=== PATIENT | male | born 1945 | race Caucasian/White ===

== ENCOUNTER 2017-01-04 12:58 | Inpatient (IN) ==
[2017-01-04 14:19] LABS: MANUAL DIFF NEEDED? NO
[2017-01-04 14:28] LABS: BASO% 0.4 % (0.0-0.8); EOS# 0.13 X1000 (0.0-0.7); EOS% 1.9 % (0.0-10.0); HEMATOCRIT 38.1 % (42.0-52.0); HEMOGLOBIN 12.6 g/dL (14.0-18.0); LYMPH# 1.17 X1000 (1.2-3.4); LYMPH% 17.3 % (20.5-51.1); MCH 29.6 PG (27-31); MCHC 33.1 g/dL (33-37); MCV 89.6 FL (81-99); MONO# 0.43 X1000 (0.11-0.59); MONO% 6.4 % (1.7-9.3); MPV 11.4 FL (7.4-10.4); PLT 202 X1000 (130-400); RBC 4.25 XMIL (4.7-6.1)
[2017-01-04 14:31] LABS: INR 1.02; PROTIME 10.7 Seconds (9.2-11.7); PTT 24.7 Seconds (22.0-36.0)
--- NOTE | 2017-01-04 14:32 | EKG Report ---
Test Performed on : 01/04/2017 2:16:08 PM Test Reason : AMS Blood Pressure : / mmHG Vent. Rate : 055 BPM Atrial Rate : 055 BPM P-R Int : 156 ms QRS Dur : 164 ms QT Int : 530 ms P-R-T Axes : 052 -28 012 degrees QTc Int : 507 ms Sinus bradycardia. with premature supraventricular complexes. Possible Left atrial enlargement Right bundle branch block Left ventricular hypertrophy Abnormal ECG No previous ECGs available Unconfirmed Result
[2017-01-04 14:38] LABS: ALBUMIN 4.1 g/dL (3.5-5.0); CALCIUM 9.4 mg/dL (8.8-10.2); POTASSIUM 3.7 mmol/L (3.5-5.1); TOTAL BILIRUBIN 0.34 mg/dL (0.20-1.00); TOTAL PROTEIN 6.4 g/dL (6.3-8.3)
--- NOTE | 2017-01-04 14:45 | Diag Imaging Result Doc PS360 ---
CHEST-PORTABLE - 01/04/2017 INDICATION: AMS TECHNIQUE: COMPARISON: None FINDINGS: There are several left-sided rib deformities compatible with old healed fractures. There is age-indeterminate separation of the right acromioclavicular joint. The lungs are clear of infiltrate. Heart size and pulmonary vascularity is normal. IMPRESSION: No acute disease. Electronically signed by Juan Manuel Ibanez 01/04/2017 2:43 PM
--- NOTE | 2017-01-04 14:47 | PROVIDER DOCUMENTATION ---
HPI-Syncope/Dizziness - General Chief Complaint: Altered Mental Status Stated Complaint: ams Time Seen by Provider: 01/04/17 14:23 Allergies/Adverse Reactions: Patient Allergies Allergy/AdvReac Type Severity Reaction Status Date / Time Penicillins Allergy Unknown Verified 12/31/15 16:43 Home Medications: Home Medication List Medication Instructions Recorded Confirmed Last Taken Type Aspirin 325 mg PO DAILY 12/31/15 12/31/15 12/31/15 History Atenolol 50 mg PO 12/31/15 12/31/15 History ENALApril [Vasotec] 10 mg PO DAILY 12/31/15 12/31/15 12/31/15 History Fenofibrate 160 mg PO 12/31/15 12/31/15 History Glipizide [Glipizide ER] 10 mg PO 12/31/15 Unknown History [place] Carbonate 450 mg PO 12/31/15 Unknown History Metformin [Glucophage] 500 mg PO BID 12/31/15 12/31/15 Unknown History Perphenazine 2 mg PO 12/31/15 12/31/15 History - History of Present Illness-Syncope/Dizzy Nature of Presenting Problem: Pt comes to he ED via EMS, pt was found unresponsive. Pt states that he does not remember anything that happened in the last week. Pt states that sometimes he accidentally doubles up in his BP meds accidentally, but is unsure if this happened today. The pt's sister got to the ED around 17:00 and explained that pt was found in his apartment complex lobby confused, pt asked to use to bathroom but walked out of it with his pants pulled down, the staff sent him to his room and they called the pt's sister who called EMS Prior Episodes: reports: other (unsure) Onset/Duration: reports: unsure Timing: reports: gone now Symptoms prior to episode: reports: other (unknown) Context: reports: lost consciousness, became unresponsive, collapsed Loss of Consciousness: unsure Location of injury. (If syncope resulted in an injury.): reports: none Current Symptoms: reports: none/feels normal - Dizziness Any recent trauma/injury?: reports: other (unsure) Modifying Factors: improves with: nothing Review of Systems - Adult - REVIEW OF SYSTEMS - ADULT ROS:: ROS per family (per sister, pt is very weak, confused) Constitutional: reports: no symptoms reported Eyes: reports: no symptoms reported Ears, Nose, Mouth & Throat: reports: no symptoms reported Cardiovascular: reports: no symptoms reported Respiratory: reports: no symptoms reported Gastrointestinal: reports: no symptoms reported Genitourinary: reports: no symptoms reported Musculoskeletal: reports: no symptoms reported Integumentary: reports: no symptoms reported Neurological: reports: no symptoms reported Psychiatric: reports: no symptoms reported Endocrine: reports: no symptoms reported Past History - Adult - PAST MEDICAL HISTORY-ADULT Review of Records: reports: Old Records Reviewed (HNT, DM2 non insulin dependent , bipolar), Nursing Assessment Review, Medications Reviewed Major Childhood Illnesses: reports: denies history Cardiovascular: reports: denies history Respiratory: reports: denies history Gastrointestinal: reports: denies history Obstetrical/Gynecological: reports: denies history Genitourinary: reports: denies history Musculoskeletal: reports: denies history Neurological: reports: denies history Endocrine/Immune: reports: denies history Other Conditions: reports: denies history Physical Exam-General - PHYSICAL EXAM-ADULT Initial Vital Signs Reviewed: Yes (bradycardic 50-56) - CONSTITUTIONAL General Appearance: appears well, alert, other (confused) - EYES Eyes: PERRL/EOMI, pink conjunctivae - HEAD, EARS, NOSE, MOUTH & THROAT HENMT: normocephalic/atraumatic, moist mucous membranes, normal ENT inspection - NECK Neck: non-tender, full range of motion - RESPIRATORY Respiratory: chest non-tender, no respiratory distress (babasilar crackels) - CARDIOVASCULAR Cardiovascular: normal peripheral pulses, no JVD, bradycardia. negative: no edema (bilateral LE edema +1) - GASTROINTESTINAL (ABDOMEN) Abdominal Exam: normal bowel sounds, non tender - LYMPHATIC Lymphatic: no adenopathy - SKIN Integumentary: normal color - NEUROLOGIC Neurologic: grossly normal - PSYCHIATRIC Psych/Mental Status: normal mood/affect Progress - PLAN OF CARE/RESULTS Progress/Plan/Lab Results: Vital Signs - 8 hr 01/04/17 13:26 01/04/17 15:00 Temperature 98.6 F Pulse Rate 56 L 58 L Respiratory Rate 17 12 Blood Pressure 167/71 174/89 O2 Sat by Pulse Oximetry 97 97 Laboratory Results - last 24 hr 01/04/17 01/04/17 01/04/17 14:15 14:15 14:15 WBC 6.75 RBC 4.25 L Hgb 12.6 L Hct 38.1 L MCV 89.6 MCH 29.6 MCHC 33.1 RDW Std Deviation 14.9 H Plt Count 202 MPV 11.4 H Immature Gran % (Auto) 0.0 Neut % (Auto) 74.0 Lymph % (Auto) 17.3 L [place] % (Auto) 6.4 Eos % (Auto) 1.9 Baso % (Auto) 0.4 Immature Gran # (Auto) 0.00 Neut # (Auto) 4.99 Lymph # (Auto) 1.17 L [place] # (Auto) 0.43 Eos # (Auto) 0.13 Baso # (Auto) 0.03 PT INR PTT (Act[place] FS) Specimen Type Sample Site pH pCO2 pO2 HCO3 Base Excess Oxyhemoglobin ABG O2 Sat (Calculated) ABG O2 Saturation ABG Carboxyhemoglobin ABG Methemoglobin Malik Test A-a O2 Difference Total Hemoglobin Lactate Blood Gas Modality FiO2 % Sodium 145 Potassium 3.7 Chloride 111 H Carbon Dioxide 21 L Anion Gap 13 BUN 16 Creatinine 1.5 H Estimated GFR/1.73 m2 46 BUN/Creatinine Ratio 11 Glucose 146 H POC Glucose Calculated Osmolality 293 Calcium 9.4 Total Bilirubin 0.34 AST 43 H ALT 37 Alkaline Phosphatase 64 Creatine Kinase 530 H Creatine Kinase Index 3.1 H CK-MB (CK-2) 16.32 H Troponin T Total Protein 6.4 Albumin 4.1 Globulin 2.3 Albumin/Globulin Ratio 1.8 Plasma Lactate Urine Source Urine Color Urine Turbidity Urine pH Ur Specific [place] Urine Protein Ur Glucose (Stick) Ur Ketones (Stick) Urine Blood Urine Nitrite Urine Bilirubin Urobilinogen Dipstick Urine Leukocytes Urine WBC (Auto) Urine RBC (Auto) U Epithel Cells (Auto) Urine Bacteria (Auto) Urine Crystals Small Round Cells Urine Casts Urine Yeast-like Cells Urine Opiates Screen Ur Oxycodone Screen Ur Methadone, Qual Ur Barbiturates Screen Ur Phencyclidine Scrn Ur Amphetamines Screen U Benzodiazepines Scrn Urine Cocaine Screen U Cannabinoids Screen Plasma/Serum Ethyl Alc 01/04/17 01/04/17 01/04/17 14:15 14:15 14:17 WBC RBC Hgb Hct MCV MCH MCHC RDW Std Deviation Plt Count MPV Immature Gran % (Auto) Neut % (Auto) Lymph % (Auto) [place] % (Auto) Eos % (Auto) Baso % (Auto) Immature Gran # (Auto) Neut # (Auto) Lymph # (Auto) [place] # (Auto) Eos # (Auto) Baso # (Auto) PT 10.7 INR 1.02 PTT (Actin FS) 24.7 Specimen Type Sample Site pH pCO2 pO2 HCO3 Base Excess Oxyhemoglobin ABG O2 Sat (Calculated) ABG O2 Saturation ABG Carboxyhemoglobin ABG Methemoglobin Malik Test A-a O2 Difference Total Hemoglobin Lactate Blood Gas Modality FiO2 % Sodium Potassium Chloride Carbon Dioxide Anion Gap BUN Creatinine Estimated GFR/1.73 m2 BUN/Creatinine Ratio Glucose POC Glucose 144 H D Calculated Osmolality Calcium Total Bilirubin AST ALT Alkaline Phosphatase Creatine Kinase Creatine Kinase Index CK-MB (CK-2) Troponin T 0.015 Total Protein Albumin Globulin Albumin/Globulin Ratio Plasma Lactate Urine Source Urine Color Urine Turbidity Urine pH Ur Specific [place] Urine Protein Ur Glucose (Stick) Ur Ketones (Stick) Urine Blood Urine Nitrite Urine Bilirubin Urobilinogen Dipstick Urine Leukocytes Urine WBC (Auto) Urine RBC (Auto) U Epithel Cells (Auto) Urine Bacteria (Auto) Urine Crystals Small Round Cells Urine Casts Urine Yeast-like Cells Urine Opiates Screen Ur Oxycodone Screen Ur Methadone, Qual Ur Barbiturates Screen Ur Phencyclidine Scrn Ur Amphetamines Screen U Benzodiazepines Scrn Urine Cocaine Screen U Cannabinoids Screen Plasma/Serum Ethyl Alc 01/04/17 01/04/17 01/04/17 14:19 14:28 15:30 WBC RBC Hgb Hct MCV MCH MCHC RDW Std Deviation Plt Count MPV Immature Gran % (Auto) Neut % (Auto) Lymph % (Auto) [place] % (Auto) Eos % (Auto) Baso % (Auto) Immature Gran # (Auto) Neut # (Auto) Lymph # (Auto) [place] # (Auto) Eos # (Auto) Baso # (Auto) PT INR PTT (Actin FS) Specimen Type ARTERIAL Sample Site R RADIAL pH 7.40 pCO2 35 pO2 99 HCO3 22.9 Base Excess -2.6 Oxyhemoglobin 96.0 ABG O2 Sat (Calculated) 16.9 ABG O2 Saturation 98.3 ABG Carboxyhemoglobin 1.50 ABG Methemoglobin 0.8 Malik Test YES A-a O2 Difference 7.0 Total Hemoglobin 12.4 Lactate 0.60 Blood Gas Modality ROOM AIR FiO2 % 21.0 Sodium Potassium Chloride Carbon Dioxide Anion Gap BUN Creatinine Estimated GFR/1.73 m2 BUN/Creatinine Ratio Glucose POC Glucose 77 Calculated Osmolality Calcium Total Bilirubin AST ALT Alkaline Phosphatase Creatine Kinase Creatine Kinase Index CK-MB (CK-2) Troponin T Total Protein Albumin Globulin Albumin/Globulin Ratio Plasma Lactate 0.9 Urine Source Urine Color Urine Turbidity Urine pH Ur Specific [place] Urine Protein Ur Glucose (Stick) Ur Ketones (Stick) Urine Blood Urine Nitrite Urine Bilirubin Urobilinogen Dipstick Urine Leukocytes Urine WBC (Auto) Urine RBC (Auto) U Epithel Cells (Auto) Urine Bacteria (Auto) Urine Crystals Small Round Cells Urine Casts Urine Yeast-like Cells Urine Opiates Screen Ur Oxycodone Screen Ur Methadone, Qual Ur Barbiturates Screen Ur Phencyclidine Scrn Ur Amphetamines Screen U Benzodiazepines Scrn Urine Cocaine Screen U Cannabinoids Screen Plasma/Serum Ethyl Alc 01/04/17 01/04/17 15:58 15:58 WBC RBC Hgb Hct MCV MCH MCHC RDW Std Deviation Plt Count MPV Immature Gran % (Auto) Neut % (Auto) Lymph % (Auto) [place] % (Auto) Eos % (Auto) Baso % (Auto) Immature Gran # (Auto) Neut # (Auto) Lymph # (Auto) [place] # (Auto) Eos # (Auto) Baso # (Auto) PT INR PTT (Act[place] FS) Specimen Type Sample Site pH pCO2 pO2 HCO3 Base Excess Oxyhemoglobin ABG O2 Sat (Calculated) ABG O2 Saturation ABG Carboxyhemoglobin ABG Methemoglobin Malik Test A-a O2 Difference Total Hemoglobin Lactate Blood Gas Modality FiO2 % Sodium Potassium Chloride Carbon Dioxide Anion Gap BUN Creatinine Estimated GFR/1.73 m2 BUN/Creatinine Ratio Glucose POC Glucose Calculated Osmolality Calcium Total Bilirubin AST ALT Alkaline Phosphatase Creatine Kinase Creatine Kinase Index CK-MB (CK-2) Troponin T Total Protein Albumin Globulin Albumin/Globulin Ratio Plasma Lactate Urine Source CLEAN CATCH Urine Color YELLOW Urine Turbidity HAZY Urine pH 6.5 Ur Specific [place] 1.002 Urine Protein TRACE A Ur Glucose (Stick) NEGATIVE Ur Ketones (Stick) NEGATIVE Urine Blood TRACE A Urine Nitrite NEGATIVE Urine Bilirubin NEGATIVE Urobilinogen Dipstick NORMAL Urine Leukocytes LARGE A Urine WBC (Auto) TNTC A Urine RBC (Auto) <10 U Epithel Cells (Auto) <10 Urine Bacteria (Auto) 1+ Urine Crystals NONE SEEN Small Round Cells NONE SEEN Urine Casts NONE SEEN Urine Yeast-like Cells NONE SEEN Urine Opiates Screen NONE DETECTED Ur Oxycodone Screen NONE DETECTED Ur Methadone, Qual NONE DETECTED Ur Barbiturates Screen NONE DETECTED Ur Phencyclidine Scrn NONE DETECTED Ur Amphetamines Screen NONE DETECTED U Benzodiazepines Scrn NONE DETECTED Urine Cocaine Screen NONE DETECTED U Cannabinoids Screen NONE DETECTED Plasma/Serum Ethyl Alc Orders Category Date Time Status Cardiac Monitoring DIRECTED Care 01/04/17 14:02 Active Finger Stick Blood Sugar (ED) DIRECTED Care 01/04/17 14:02 Active Oxygen Therapy- ED Nursing DIRECTED Care 01/04/17 14:02 Active Saline Loc NOW Care 01/04/17 14:02 Active CHEST-PORTABLE [RAD] Stat Exams 01/04/17 14:[address] HEAD W/O CONTRAST [CT] Stat Exams 01/04/17 15:08 Completed ABG [RESP] Routine Lab 01/04/17 15:30 Completed ALCOHOL BLOOD Stat Lab 01/04/17 14:15 Completed CBC WITH ELECTRONIC DIFF [HEME] Stat Lab 01/04/17 14:15 Completed CK PROFILE [SP CHEM] Stat Lab 01/04/17 14:15 Completed COMPREHENSIVE METABOLIC PANEL [CHEM] Stat Lab 01/04/17 14:15 Completed LACTATE, PLASMA [CHEM] Stat Lab 01/04/17 14:28 Completed PROTIME WITH INR [COAG] Stat Lab 01/04/17 14:15 Completed PTT [COAG] Stat Lab 01/04/17 14:15 Completed TROPONIN T Stat Lab 01/04/17 14:15 Completed URINALYSIS W/POSS RFLX CULT-1 [URINALYSIS] Stat Lab 01/04/17 15:58 Completed URINE CULTURE [RM] Routine Lab 01/04/17 16:55 Received URINE DRUG SCREEN Stat Lab 01/04/17 15:58 Completed URINE MANUAL MICROSCOPIC [URINALYSIS] Stat Lab 01/04/17 15:58 Completed Pulse Oximetry Stat Oth 01/04/17 14:02 Active EKG [EKG] Stat Ther 01/04/17 14:02 Draft Result Diagrams: 01/04/17 14:15 01/04/17 14:15 Departure - Departure Date of Disposition Decision: 01/04/17 Time of Disposition Decision: 17:47 DIAGNOSIS: Encephalopathy, Bradycardia, Acute kidney injury Disposition: ADMITTED INPATIENT 09 Certified Medical Emergency: Emergent Condition: Stable Referrals and Follow-Ups: Arabella Haas MD [Primary Care Provider] - - Critical Care Note This patient required my direct & personal management of CC.: No Attestation - Physician/ ALEJANDRO Attestation Patient care was provided by Advanced Practice Provider:: Yes Advanced Practice Provider documentation review:: The Mid-level provider documentation, treatment plan and medical decision making was reviewed by the physician who agrees with all treatment and medical decision making by the MLP. The physician spent face to face time with patient:: Yes Advanced Practice Provider documentation review:: Supervising physician onsite and consulted in the evaluation and care of this patient. The physician did have a face to face encounter with the patient.
[2017-01-04 15:10] LABS: CK INDEX 3.1 (0.0-2.5); CK-MB 16.32 ng/mL (0.0-5.0)
[2017-01-04 15:41] LABS: ALLEN TEST YES; BE -2.6 mmoll (-3.0-3.0); BLOOD TYPE ARTERIAL; DRAW SITE R RADIAL; METHB 0.8 % (0.0-1.5); O2(CT) 16.9 mL/dL (15.0-23.0); PCO2(98.6) 35 mmHg (35-45); PO2(98.6) 99 mmHg (60-100); SAMPLE BLOOD; SAO2 98.3 % (95.0-100.0); THB 12.4 g/dL (11.5-17.4)
[2017-01-04 15:42] LABS: MODALITY ROOM AIR
--- NOTE | 2017-01-04 15:53 | Diag Imaging Result Doc PS360 ---
CT HEAD W/O CONTRAST - 01/04/2017 INDICATION: LOC, AMS TECHNIQUE: A CT dose reduction protocol was used. COMPARISON: None FINDINGS: There is moderate diffuse atrophy. There is mild periventricular white matter chronic microvascular ischemia. No intracranial mass or hemorrhage. The skull is intact. The sinuses are clear. There is a fatty nodule at the left nasoorbital crease. This is compatible with a benign lipoma. IMPRESSION: Chronic ischemic changes of the brain. No acute abnormality. Electronically signed by Juan Manuel Ibanez 01/04/2017 3:51 PM
[2017-01-04 16:35] LABS: URINE SOURCE CLEAN CATCH
[2017-01-04 16:42] LABS: BILIRUBIN URINE NEGATIVE (NEGATIVE); BLOOD URINE TRACE (NEGATIVE); COLOR YELLOW; GLUCOSE URINE NEGATIVE (NEGATIVE); LEUKOCYTES URINE LARGE (NEGATIVE); NITRITE URINE NEGATIVE (NEGATIVE); PH URINE 6.5; PROTEIN URINE TRACE mg/dL (NEGATIVE); SP GRAVITY URINE 1.002; TURBIDITY URINE HAZY (CLEAR); URINE MICRO REVIEW NEEDED? YES; UROBILINOGEN URINE NORMAL (NORMAL)
[2017-01-04 16:49] LABS: UR EPITHELIAL CELLS <10 /HPF (<10); URINE BACTERIA 1+ /HPF; URINE CULTURE NEEDED? YES; URINE RBC <10 /HPF (<10); URINE WBC TNTC /HPF (<10)
[2017-01-04 16:51] LABS: UR AMPHETAMINES QUAL NONE DETECTED (NONE DETECT); UR BARBITUATES QUAL NONE DETECTED (NONE DETECT); UR BENZODIAZEPIN QUAL NONE DETECTED (NONE DETECT); UR CANNABINOIDS QUAL NONE DETECTED (NONE DETECT); UR COCAINE QUAL NONE DETECTED (NONE DETECT); UR METHADONE QUAL NONE DETECTED (NONE DETECT); UR OPIATES QUAL NONE DETECTED (NONE DETECT); UR OXYCODONE QUAL NONE DETECTED (NONE DETECT); UR PCP QUAL NONE DETECTED (NONE DETECT)
[2017-01-04 16:59] LABS: URINE CASTS NONE SEEN; URINE CRYSTALS NONE SEEN; URINE SMALL ROUND CELLS NONE SEEN
[2017-01-04] MEDS ORDERED: ASPIRIN PO ONE (21:32)
[2017-01-04] MEDS ORDERED: NITROGLYCERIN TOP ONE (21:34)
[2017-01-04] MEDS ORDERED: NITROGLYCERIN ONE (21:54)
[2017-01-04] MEDS ORDERED: ASPIRIN ONE (21:55)
[2017-01-04] MEDS: AZACTAM 1 GM in NS 50 ML IV SCH (21:56)
[2017-01-04 22:31] LABS: HEMOGLOBIN A1C 9.4 % (4.8-6.0)
[2017-01-04] MEDS ORDERED: NS 1,000 ML IV SCH (22:57)
--- NOTE | 2017-01-04 23:15 | HISTORY AND PHYSICAL ---
PRIMARY CARE PROVIDER: Dr. Arabella Haas. COMPLAINT: Altered mental status. HISTORY OF PRESENT ILLNESS: This is a 71-year-old male who was found by EMS apparently unresponsive. His [id number] was at the bedside during the interview, but the patient related to his mental status is a very poor historian and the [id number] only knew a small amount of what had happened in his past medical history. The patient apparently stated that he accidentally doubled doses up on his blood pressure medications unintentionally. He is unsure if that happened today. He was found in his apartment complex sitting outside of his door by EMS from what I can gather. The apartment complex called his [id number] because he was acting very strange in the lobby. He used the bathroom and then came out with his pants pulled down. The staff had instructed him to go back to his room. I am unsure whether the patient had loss of consciousness as he was unable to tell me. It does not appear that he hit his head or fell. He does not have a complaint of pain at this time. He denied any type of chest pain, nausea, vomiting, diarrhea and basically has no complaint. A CT of his head was obtained which showed chronic ischemic changes of the brain. No acute abnormality. Chest x-ray: NAD. The patient's medication list is unconfirmed, but previous medication list appears that he may take lithium. A lithium level is now pending. Also on a laboratory data obtained on arrival, his CK-MB and CK index were all elevated. CK index was 3.1 and troponin was 0.015, a stat recheck has been put in for these. The patient did have in his urine, leukocyte esterase positive, too numerous to count WBCs, and 1+ bacteria. The patient has a penicillin allergy. We will, because of his altered mental status, again not choose Levaquin. We will give Azactam 1 g q.8 hours and admit the patient to CICU for further evaluation and treatment. PAST MEDICAL HISTORY: Hypertension, hyperlipidemia, and diabetes mellitus that we are aware of. This may not be a fully comprehensive list as again, the patient was altered. PREVIOUS SURGICAL HISTORY: Tonsillectomy. SOCIAL HISTORY: Lives at home alone. Quit smoking cigarettes 30 years ago there about. No alcohol or illicit drug use or abuse. FAMILY HISTORY: Father had coronary artery disease. Mother, schizophrenia and diabetes mellitus. ALLERGY: Penicillin, causing an unknown reaction. HOME MEDICATION LIST: A home medication list has not been able to be reconciled. Order was placed for nursing to reconcile home medications. REVIEW OF SYSTEMS: Fourteen point review of systems conducted with the patient. Pertinent positives listed above in the HPI. All other systems reviewed and found to be negative. PHYSICAL EXAMINATION: VITAL SIGNS: Temperature 98.6 degrees, pulse has been as low as 42 and as high 65, sinus bradycardia, sinus rhythm. Respirations 12-20, blood pressure 191/90, oxygen saturation 97% on room air. GENERAL: A pleasantly confused, 71-year-old male oriented only to person. Disoriented to time, place and situation. Lying in the ER stretcher in no acute distress. HEENT: Head is atraumatic, normocephalic. Pupils are equal, round, reactive to light. Extraocular eye movement is intact. Sclerae nonicteric. Conjunctivae pink. Oral mucosa mildly dry. NECK: Supple. No JVD. No thyromegaly. Trachea is midline. No lymphadenopathy. CARDIAC: S1-S2 appreciated. No murmurs, gallops, rubs. Sinus bradycardia. LUNGS: Clear to auscultation bilaterally. No rhonchi, wheezes or rales. Symmetrical rise and fall with respirations. ABDOMEN: Soft and nondistended, nontender. Bowel sounds present all 4 quadrants. Hypoactive, no pulsatile mass. No organomegaly. EXTREMITIES: Trace lower extremity edema, nonpitting. No clubbing or cyanosis. NEUROLOGICAL: Oriented only to person, disoriented to place, time and situation. Cranial nerves 2-12 appear to be grossly intact. No palmar drift. No asterixis. No facial or musculoskeletal asymmetry noted. GENITOURINARY: The patient voids. Otherwise deferred. SKIN: Warm, dry, intact. No acute lesions or rash. DIAGNOSTIC DATA: CT of the head, chronic ischemic changes. No acute abnormality. Chest x-ray: NAD. Laboratory data: WBC 6.75, hemoglobin 12.6, hematocrit 38.1, platelet count 202,000. Coagulase within normal limits. ABG within normal limits on room air. Sodium 145, potassium 3.7, chloride 111, carbon dioxide 21, BUN 16, creatinine 1.5, glucose 146. CK 530. CK index 3.1. CK- MB 16.32. Troponin 0.015. Urine leukocyte esterase positive, too numerous to count WBCs, 1+ bacteria. Toxicology screen and serum alcohol negative. ASSESSMENT AND PLAN: 1. Toxic versus infectious encephalopathy. [place] level is pending to rule out lithium toxicity. The patient has apparently been known to take double doses of his medications. He is unsure whether this happened today. He does have a mild urinary tract infection, which could lead to infectious encephalopathy. 2. Rule out cerebrovascular accident. We will order echocardiogram and carotid ultrasound. Consult Dr. Topher Hinojosa. We will defer to Dr. Hinojosa MRI examination. Check a lipid profile. Continue patient's pravastatin 10 mg, again home medications were not reconciled, so unsure if the patient is actively taking this. Aspirin 325 mg p.o. daily. 3. Bradycardia. Again, unsure what the patient's medications are. If he is on a beta edward and took double dosing, it is possible that this is the cause of the bradycardia. Echocardiogram will be ordered in a.m. We will consult Dr. Meza to evaluate. The patient also has borderline cardiac enzymes, a CK index of 3.1 and a troponin of 0.015. A stat redraw has been ordered and is pending at this time. 4. Urinary tract infection. The patient has a penicillin allergy. With his acute altered mental status, we will not give Levaquin. Also will not be able to give Zosyn or Rocephin. We will give Azactam 1 mg IV q.8 hours. 5. Diabetes mellitus with hyperglycemia. Check hemoglobin A1c. Start patient on sliding scale insulin with fingerstick blood sugar before meals and at bedtime. 6. Hypertension. The patient does have a past medical history of hypertension. Again, unaware of what home medications he takes. We will put 0.5 mg of nitroglycerin paste topically as we do not want to decrease the blood pressure too much related to the possibility of stroke. However, it would be beneficial to decrease the blood pressure somewhat related to the possibility of him ruling in for a non-STEMI. We will continue to evaluate. Further orders per patient clinical course. Dictated by AMBER Traore for Gabriele Vega MD Addendum Pt's lithium level was WNL. Pt very likely has underlying ischemic heart disease regardless of renal function. Seen,examined and discussed case with REGULATOR MECHANIC. cc: AMBER Traore MD Marlin D. Gill, MD MTDD
--- NOTE | 2017-01-04 23:43 | ED EKG INTERP ---
This chart was entered by Jessie Thompson Scribe, acting as scribe for Humza Pierson MD. EKG Interpretation - EKG Time of EKG reading by physician:: 22:04 EKG Read and Signed by:: Humza Pierson EKG Interpretation (*Must complete 3 of following elements*): Abnormal Rate: 60 Rhythm: Sinus Bradycardia with Pramature Supraventricular complexes QRS: RBB, LVH (Minimal Voltage criteria, may be normal variant) Comments: Abnormal ECG Attestation - Physician/ ALEJANDRO Attestation Patient care was provided by Advanced Practice Provider:: No The physician spent face to face time with patient:: Yes Advanced Practice Provider documentation review:: Supervising physician onsite and consulted in the evaluation and care of this patient. The physician did have a face to face encounter with the patient. This chart was documented by the indicated scribe, (Jessie Thompson Scribe) and accurately reflects the services I performed and decisions made by me, Humza Pierson MD, as attested by the provider's signature.
[2017-01-04 23:44] LABS: CK INDEX 3.5 (0.0-2.5); CK-MB 10.91 ng/mL (0.0-5.0)
[2017-01-05 00:14] LABS: HEMOGLOBIN A1C 9.3 % (4.8-6.0)
[2017-01-05 00:50] LABS: CK INDEX 3.6 (0.0-2.5); CK-MB 13.05 ng/mL (0.0-5.0)
[2017-01-05] MEDS ORDERED: NS 1,000 ML ONE ×2 (01:05→12:22)
[2017-01-05] MEDS: AZACTAM 1 GM in NS 50 ML IV SCH ×2 (04:56→14:20)
[2017-01-05 05:40] LABS: MANUAL DIFF NEEDED? NO
--- NOTE | 2017-01-05 05:42 | EKG Report ---
Test Performed on : 01/04/2017 3:52:57 PM Test Reason : No Order in [employer] Blood Pressure : / mmHG Vent. Rate : 060 BPM Atrial Rate : 060 BPM P-R Int : 124 ms QRS Dur : 162 ms QT Int : 508 ms P-R-T Axes : 058 -31 026 degrees QTc Int : 508 ms Sinus rhythm. with premature supraventricular complexes. Possible Left atrial enlargement Left axis deviation Right bundle branch block Abnormal ECG When compared with ECG of 04-JAN-2017 14:16, (Unconfirmed) No significant change was found Unconfirmed Result
--- NOTE | 2017-01-05 05:42 | EKG Report ---
Test Performed on : 01/04/2017 10:04:48 PM Test Reason : No Order in [employer] Blood Pressure : / mmHG Vent. Rate : 060 BPM Atrial Rate : 052 BPM P-R Int : 158 ms QRS Dur : 170 ms QT Int : 544 ms P-R-T Axes : 055 -23 001 degrees QTc Int : 544 ms Sinus bradycardia. with premature supraventricular complexes. Right bundle branch block Minimal voltage criteria for LVH, may be normal variant Abnormal ECG When compared with ECG of 04-JAN-2017 15:52, (Unconfirmed) No significant change was found Unconfirmed Result
[2017-01-05 05:50] LABS: BASO% 0.5 % (0.0-0.8); EOS# 0.13 X1000 (0.0-0.7); EOS% 3.2 % (0.0-10.0); HEMATOCRIT 32.8 % (42.0-52.0); LYMPH# 0.82 X1000 (1.2-3.4); MCH 30.3 PG (27-31); MCHC 33.5 g/dL (33-37); MCV 90.4 FL (81-99); MONO# 0.28 X1000 (0.11-0.59); MONO% 6.8 % (1.7-9.3); MPV 12.2 FL (7.4-10.4); NEUT% 69.5 % (42.2-75.2); PLT 179 X1000 (130-400); RBC 3.63 XMIL (4.7-6.1)
[2017-01-05 06:38] LABS: ALBUMIN 3.2 g/dL (3.5-5.0); CALCIUM 9.2 mg/dL (8.8-10.2); POTASSIUM 3.3 mmol/L (3.5-5.1); TOTAL BILIRUBIN 0.38 mg/dL (0.20-1.00); TOTAL PROTEIN 5.4 g/dL (6.3-8.3)
[2017-01-05 07:26] LABS: CK INDEX 3.9 (0.0-2.5); CK-MB 8.66 ng/mL (0.0-5.0)
[2017-01-05] MEDS ORDERED: ASPIRIN PO SCH (09:00)
[2017-01-05] MEDS ORDERED: ATROPINE SYRINGE ONE (09:13)
[2017-01-05] MEDS ORDERED: D5W 1,000 ML IV SCH (09:23)
[2017-01-05] MEDS ORDERED: NS 250 ML ONE (09:25)
[2017-01-05] MEDS ORDERED: DOPAMINE 800 MG/D5W 800 MG/500 ML IV.SOLN IV SCH (09:30)
--- NOTE | 2017-01-05 09:34 | EKG Report ---
Test Performed on : 01/05/2017 08:46:37 AM Test Reason : decreased HR Blood Pressure : / mmHG Vent. Rate : 052 BPM Atrial Rate : 052 BPM P-R Int : 162 ms QRS Dur : 170 ms QT Int : 532 ms P-R-T Axes : 064 -23 007 degrees QTc Int : 494 ms Sinus bradycardia. with sinus arrhythmia. Right bundle branch block Abnormal ECG When compared with ECG of 04-JAN-2017 22:04, QRS axis is shifted left inferiorly - no change No significant change was found Confirmed by Ponce Wisdom DO ([id number]) on 01/09/2017 4:06:39 PM
[2017-01-05] MEDS ORDERED: POTASSIUM CHLORIDE 60 MEQ in NS 500 ML IV ONE (10:00)
[2017-01-05] MEDS ORDERED: REGITINE INJ ONE (10:30)
--- NOTE | 2017-01-05 10:51 | CONSULTATION ---
DATE OF CONSULTATION: 01/05/2017 Mr. Higuera is 71 years old and he was reportedly found unresponsive and brought to the hospital. He reports not feeling well, feeling very thirsty, nothing else specific. He is not certain that he remembers any period of altered awareness. He believes he has not had a spell like this before. He feels recovered now except he is still thirsty. He reports no history of stroke, seizure, serious head injury, ethanol abuse, medication intoxication, illicit drug use. 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 Workup here includes labs showing lithium level 0.7, sodium 150, elevated CK. His home medicine list includes enalapril, aspirin, perphenazine, metformin, pravastatin, lithium, atenolol, glipizide, fenofibrate. He believes he has not had any recent medication changes and that he takes his medicines correctly but he cannot tell me much more than that. Noncontrast CT of the head late yesterday was reported unremarkable. He has had significant bradycardia recorded as low as the 20s by verbal report and recorded in the low 50s on the computer record. Report is that he has cardiology workup and possible transfer pending. On exam, Mr. Higuera is awake, alert, attentive. He seems appropriate right now. Speech is not dysarthric. Language function is intact. I did not test his cognitive function thoroughly. Head and neck are unremarkable. Visual troncoso are full. Initially, he had better right gaze than the left but with vigorous testing, extraocular movements are full and conjugate. Facial motility is normal and symmetric. Gag is intact. Tongue is midline. He can hear. He splints the right shoulder. Left shoulder shrug is good. Strength is normal in the arms and legs. He did well on [id number]-[id number]-[id number] testing bilaterally. He has a stocking pattern of sensory loss to pinprick and light touch testing. Proprioception is a little bit diminished at the great toe, MTP joint bilaterally. Reflexes are absent at the ankles, 1+ symmetrically at the wrists. Plantar response is silent bilaterally. I did not test his gait. IMPRESSION: Nonfocal neurologic exam. I do not see any clinical or imaging evidence of recent central nervous system event. I do not have a detailed history or firsthand report of his initial appearance. Seizure would be a possibility with the relatively minor metabolic findings but this seems more likely a case of transient unconsciousness likely related to bradycardia. I do not have any specific suggestion right now from a neurologic standpoint. Thanks for asking me to see Mr. Higuera. cc: Topher Hinojosa III, MD
[2017-01-05] MEDS: HUMALOG SUBQ SCH ×2 (11:17→11:18)
[2017-01-05] MEDS ORDERED: DEMEROL ONE ×2 (12:07→12:36)
[2017-01-05] MEDS ORDERED: VERSED ONE ×2 (12:07→12:36)
[2017-01-05] MEDS ORDERED: HEPARIN 1000 UNITS/NS 2,000 UNIT/1,000 ML IV.SOLN ONE (12:11)
[2017-01-05] MEDS ORDERED: CLAVE PUMP SET NO FILTER 12260 ONE (12:22)
[2017-01-05] MEDS ORDERED: CLAVE TWINSITE 32 IN 11959 ONE ×2 (12:22→12:23)
--- NOTE | 2017-01-05 12:24 | CONSULTATION ---
DATE OF CONSULTATION: 01/05/2017 REQUESTING PHYSICIAN: Hospitalist service. REASON FOR CONSULTATION: Bradycardia, high-grade A-V block. HISTORY: Mr. Higuera is a 71-year-old male who was brought to the emergency room somewhere around 2 p.m. by assisted living facility and the emergency medical service because he was found confused and he did not seem to behave in a rational manner. Upon presentation to the emergency room, they did an electrocardiogram that shows sinus bradycardia with right bundle-branch block and a left anterior fascicular block with a QRS of 170 msec, ventricular rate was 52 beats per minute, no acute ST changes. The patient was admitted with a presumptive diagnosis of altered mental status by the hospital service, possible encephalopathy, rule out stroke. This morning, his telemetry indicated high- degree A-V block, 3rd- degree A-V block. He appeared to become slightly less arousable during the episodes of bradycardia. When I came to see him about 9:15 in the morning, his telemetry indicated sinus bradycardia with right bundle-branch block. The episodes of high-grade A-V block had subsided. The patient was not in distress. He was very thirsty, asking for water to drink. In fact, he was drinking. He appeared to be pleasant; however, he became irritated when I questioned him about where was he living, where was he coming from, and what was he doing in the hospital. At any rate, the patient's high-grade A-V block has not reoccurred. We have positioned a a transcutaneous pacemaker, and we have him ready for temporary transvenous pacemaker insertion if he decompensates. We have initiated a dopamine drip. The patient is pleasant, is not agitated at this time. He wants to urinate. He states that he is not having any pain. Of note, his blood work indicates CPK is 530, the first at time of admission at 2:15 p.m., 308 at 10:03 p.m., 365 at 11:53 p.m., and 220 this morning at 5:20 in the morning. His CK-MB fraction has been 16.32 at 2:15 p.m.,1091 at 10:03 p.m., 1305 at 11:53 p.m., 866 at 5:20 this morning. His troponin levels are all of them negative--0.015, 0.015, 0.022, 0.014. His creatinine level is 1.5 at the moment of presentation, 1.2 this morning. His sodium is high at 150. His potassium is low at 3.3. The patient really cannot give me a whole lot of information regarding his past history. Total cholesterol noted today 152, LDL is 93, HDL is 42. PAST MEDICAL HISTORY: [facility] history indicates that he has hypertension, hyperlipidemia, bradycardia, diabetes mellitus, bipolar disorder, and B12 deficiency. He was seen last time by Dr. Angel Alonzo no 07/2014, and he is an established patient of Dr. Arabella Haas. PAST SURGICAL HISTORY: Reported cyst removal. SOCIAL HISTORY: He is single, retired. He has a [id number]. He admits to having a total of 3 siblings. FAMILY HISTORY: Apparently positive for father and mother having coronary heart disease. REVIEW OF SYSTEMS: Really noncontributory. He is not having any complaints at this time regarding the musculoskeletal system, gastrointestinal system, dermatological, eyes, hearing, hematological, ENT, cardiac, respiratory, general. He is not oriented to time. He is oriented to place and person. HOME MEDICATIONS: His home medications listed here are enalapril 10 daily, aspirin 325 daily, perphenazine 2 mg daily, metformin 500 twice a day, pravastatin 10 mg daily, lithium carbonate 450--[facility], this is a twice daily dose. He is on glipizide and fenofibrate. He is also on atenolol 50 twice a day. ALLERGIES: Penicillin. PHYSICAL EXAMINATION: Vital signs: His blood pressure recorded this morning was 202/87, pulse 69, respirations 12, temperature 98 degrees. General: He is awake, alert, oriented. He moves 4 extremities, follows commands. He is a little stiff. He is not sweating. He is not tachypneic. He is not shaking. He appears to be calm. He smiles appropriately. He also got irritated, I believe very appropriately, when he could not recall questions that I was asking. Chest: Clear to auscultation and percussion. Cardiac: Heart sounds are regular and rhythmic without gallop or murmur. Neck veins are not distended. He does not have cervical bruit. Abdomen: Nontender, soft. There is no hepatomegaly. Extremities: Good palpable pulses. There is no peripheral edema. Neurological: He has some diffuse rigidity all over. He moves 4 extremities. He follows commands. Cranial nerves are normal. IMPRESSION: 1. Patient presenting to the hospital with acute mental status changes. Given his metabolic abnormalities including hypernatremia, his increased thirst, it is very likely that he could be lithium toxic. We really need to get a lithium level on him as soon as possible. His lithium level actually was checked yesterday at 2:15 and it was normal. 2. High-grade A-V block with elevated cardiac enzymes. The patient could have [id number] myocardial infarction. 3. History of bipolar disorder. 4. History of hypertension. 5. History of diabetes mellitus type 2. RECOMMENDATION: At this point in time, we are going to try to contact the family and see if we are missing any information regarding his recent medical history. At this point in time, he appears to be somewhat stable. I am going to put him on a low-dose dopamine drip, keep his transcutaneous pacemaker on. Once I get somebody to get a consent, I would suggest to do a temporary transvenous pacemaker and then we may consider in this particular case a left heart catheterization to find out for sure if he has coronary heart disease or not. At this point in time, with his creatinine level being normal, we will probably proceed with left heart catheterization while he is here. Further advice will be forthcoming. Thank you for the opportunity to participate in his evaluation. Best regards. cc: Bam Silva MD MTDD
[2017-01-05] MEDS ORDERED: ZOFRAN ONE (12:41)
[2017-01-05] MEDS ORDERED: LABETALOL ONE (12:42)
[2017-01-05] MEDS ORDERED: MAALOX PLUS LIQUID PO PRN (13:35)
[2017-01-05] MEDS ORDERED: ATIVAN IV PRN (13:38)
[2017-01-05 14:17] LABS: URINE MICRO REVIEW NEEDED? NO; URINE SOURCE CATH
[2017-01-05] MEDS: NS 1,000 ML IV SCH ×2 (14:18→14:28)
[2017-01-05 14:21] LABS: BILIRUBIN URINE NEGATIVE (NEGATIVE); BLOOD URINE NEGATIVE (NEGATIVE); COLOR STRAW; GLUCOSE URINE 100 mg/dL (NEGATIVE); LEUKOCYTES URINE MODERATE (NEGATIVE); NITRITE URINE NEGATIVE (NEGATIVE); PROTEIN URINE TRACE mg/dL (NEGATIVE); SP GRAVITY URINE 1.005; TURBIDITY URINE CLEAR (CLEAR); UROBILINOGEN URINE NORMAL (NORMAL)
[2017-01-05 14:23] LABS: UR EPITHELIAL CELLS <10 /HPF (<10); URINE BACTERIA NEGATIVE /HPF; URINE CULTURE NEEDED? YES; URINE RBC <10 /HPF (<10)
[2017-01-05 14:37] VITALS: BP 161/86
[2017-01-05] MEDS ORDERED: HALDOL IM ONE (14:46)
--- NOTE | 2017-01-05 15:24 | ECHO REPORT ---
ORDER DATE: 01/05/2017 ECHOCARDIOGRAPHIC MEASUREMENTS: 1. Interventricular septum 1.6. 2. Left ventricular posterior wall 1.6. 3. Diastolic diameter 4.8. 4. Left atrium 4.9. 5. Aorta 3. SUMMARY OF 2-DIMENSIONAL IMAGIN. Normal left ventricular cavity size. Concentric left ventricular hypertrophy. Estimated ejection fraction 55%-60%. Mitral valve was normal. There is moderate mitral annular calcification. Tricuspid valve was normal. 2. Aortic valve leaflets are mildly sclerosed, trileaflet. 3. Pulmonic valve was normal. 4. By Doppler studies, there is no aortic stenosis or regurgitation. There is mild mitral regurgitation. Mild tricuspid regurgitation. Peak velocity across the tricuspid valve was 3.5 m/sec. Pulmonary artery systolic pressure of 60 mmHg. 5. There is no pericardial effusion or obvious intracardiac mass or thrombus seen. cc: MD Alejandro Bear CRNP
--- NOTE | 2017-01-05 19:50 | CARDIAC CATH REPORT ---
DATE: 01/05/2017 PROCEDURE: 1. Left heart catheterization. 2. Selective coronary angiogram. 3. Left ventriculogram. 4. Opacification of right femoral artery with deployment of 6-Stateless Angio-Seal device. 5. Insertion of a temporary transvenous pacemaker. HISTORY: Mr. Higuera is a 71-year-old male who lives independently and has a history of hypertension and bipolar disorder. The patient presented to the emergency room yesterday because he was found confused. Upon presentation to the ER they did a number of cardiac enzymes that showed borderline elevation of CK, CK-MB fraction, and troponin in the marie zone. The patient had an abnormal EKG with sinus rhythm, right bundle branch block, and a left anterior fascicular block. During his hospital stay in the dock pumper hours, he was noted to have significant bradycardia and third-degree AV block. The patient, for that matter, was advised to consider a temporary transvenous pacemaker. In addition, because of the elevation of cardiac enzymes, we felt that coronary heart disease needed to be excluded if a permanent pacemaker was going to be implanted. Benefits, risks, complications discussed with patient and family at length. They understood and requested to proceed. DESCRIPTION: The patient was brought to the Card[facility] Super[facility] in a fasting state. The right groin was prepped and draped in standard fashion, anesthetized with lidocaine 1%. The patient during the procedure received a total of 4 mg of Versed, 75 mg of Demerol, 10 of labetalol to control blood pressure, and also two doses of intrathecal nitroglycerin. The right groin was prepped and draped in standard fashion, anesthetized with lidocaine 1%. A 6- Stateless sheath was inserted into the right femoral artery by following the modified Seldinger technique. The patient had an external transcutaneous pacemaker. Then I advanced a balloon tipped 5-Stateless temporary transvenous pacemaker wire all the way to the right ventricular apex. Once the pacemaker was positioned under fluoroscopy, we tested the pacemaker and we found capture all the way down to 0.5 milliamps of current. The patient's pacemaker was left in demand mode at a rate of 55 beats per minute. Then we turned our attention to the left heart cath. We performed opacification of the left and right coronary arteries with 6-Stateless left Adama 4 catheters. During the procedure the patient became nauseous, complaining of neck pain, and we had to interrupt the opacification of the left coronary artery, however, this was completed after the right coronary artery was opacified. Using the right Adama catheter, the left ventricle was opacified in the 60 degree URDU projection and 30 degree CHI projection by hand injection. At the conclusion of the procedure, the catheter was removed, the sheath was flushed. The right femoral artery opacified, and then Angio-Seal device was deployed. The pacemaker was secured by using adhesive tape and suture to the patient's femoral site. The patient tolerated the procedure well without any immediate complications. SUMMARY OF HEMODYNAMIC FINDINGS: Central aortic pressure 197/81. Left ventricular pressure 189/3. SUMMARY OF ANGIOGRAPHIC FINDINGS: 1. Left main coronary artery: This vessel is very short and divides very early on into LAD and circumflex. 2. Left anterior descending coronary artery: This vessel appears to be grossly normal proximally. It shows a 30-40% plaque at the level of the first septal branch. The LAD gives rise to the first diagonal branch and the mid to distal LAD appeared to be anatomically normal. 3. Circumflex coronary artery: The circumflex arises from the left main, also very early on, and gives rise to a tiny couple of marginal vessels and then a very large tortuous lateral branch which was angiographically normal and a terminal A-V branch with a prominent sinus bernie branch. The circumflex system is anatomically normal. 4. Right coronary artery: The right coronary artery is a tortuous, large dominant vessel. It shows only mild plaque in its mid to distal segment, no more than 20%. It gives rise to a posterior descending branch and a posterolateral vessel. No critical stenosis appeared to be present within the course of the right coronary artery and its terminal branches. LEFT VENTRICULOGRAM: Left ventriculogram in the 30 degree CHI projection and 60 degree URDU projection reveals normal left ventricular contractility. Ejection fraction is estimated at 60% or so. OPACIFICATION OF RIGHT FEMORAL ARTERY: The right femoral artery was unremarkable. Angio-Seal device was deployed successfully. IMPRESSION: In summary, this study showed: 1. The patient underwent insertion of a temporary transvenous pacemaker via Right femoral vein and it is in good position. 2. Very mild coronary artery disease. 3. Normal left ventricular systolic function. 4. Normal LVEDP. 5. Systemic hypertension. 6. Unremarkable right femoral artery with successful deployment of 6-Stateless Angio-Seal device. 7. No aortic stenosis. 8. No mitral regurgitation. RECOMMENDATIONS: The patient will be transferred to [facility] for permanent pacemaker implantation. From a cardiology viewpoint, no further management required. His blood pressure will have to be managed eventually for optimization with beta-blockers and vasodilators. He will follow up with his primary doctor. cc: Bam Silva MD MTDD
[2017-01-05] MEDS ORDERED: PRAVACHOL PO SCH (21:00)
--- NOTE | 2017-01-06 06:21 | EKG Report ---
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 Rate : 094 BPM Atrial Rate : 094 BPM P-R Int : 160 ms QRS Dur : 166 ms QT Int : 444 ms P-R-T Axes : 075 -29 070 degrees QTc Int : 555 ms Normal sinus rhythm. Right bundle branch block Abnormal ECG When compared with ECG of 05-JAN-2017 08:46, (Unconfirmed) Vent. rate has increased BY 42 BPM Nonspecific T wave abnormality no longer evident in Inferior leads T wave amplitude has increased in Anterior leads QT has lengthened Confirmed by Ponce Wisdom DO ([id number]) on 01/09/2017 4:14:43 PM
[2017-01-08] MEDS ORDERED: PNEUMOVAX 23 IM ONE (09:00)
--- NOTE | 2017-01-13 09:36 | DISCHARGE SUMMARY ---
ADMISSION DATE: 01/04/2017 DISCHARGE DATE: 01/05/2017 FINAL DISCHARGE DIAGNOSES: 1. A third degree heart block status post temporary transvenous pacemaker placement. 2. Bipolar disorder. 3. Hypertension. 4. Metabolic encephalopathy. CONSULTATIONS REQUESTED DURING THIS HOSPITAL STAY: Cardiology consultation with Dr. Bam Silva. PROCEDURES PERFORMED DURING THIS HOSPITAL STAY: Left heart catheterization with insertion of a temporary transvenous pacemaker. HOSPITAL COURSE: Mr. Higuera is a 71-year-old male with a history of multiple medical problems, who initially presented to the ER with altered mental status after he was found unresponsive by family. Upon arrival to the ER, the patient was noted to be severely bradycardic. After further evaluation, it was noted that the patient was in third degree heart block. Cardiology was immediately consulted and came to the bedside and evaluated the patient. It was determined that the patient would need a temporary transvenous pacemaker placed. The patient was taken to the [facility] on 01/05/2017, at which time a left heart catheterization was performed and insertion of a temporary transvenous pacemaker was performed. Following the procedure, the patient was sent to the ICU and ultimately the patient was transferred to [facility] that same day for further treatment and evaluation. cc: Dari Sanders MD
--- NOTE | 2017-03-17 08:08 | ED EKG INTERP ---
This chart was entered by Rosa Pearl Scribe, acting as scribe for Asha Levine MD. EKG Interpretation - EKG Time of EKG reading by physician:: 14:17 EKG Read and Signed by:: Asha Levine EKG Interpretation (*Must complete 3 of following elements*): Abnormal Rate: 50 Rhythm: sinus bradycardia QRS: RBB, LVH Comments: possible L atrial enlargement - EKG # 2 Time of EKG reading by physician:: 15:52 EKG Read and Signed by:: Asha Levine EKG Interpretation (*Must complete 3 of following elements*): Abnormal Rate: 60 Rhythm: sinus with premature supraventricular complexes Brewster: left QRS: RBB Comments: possible L atrial enlargement Attestation - Physician/ ALEJANDRO Attestation Patient care was provided by Advanced Practice Provider:: No The physician spent face to face time with patient:: Yes Advanced Practice Provider documentation review:: Supervising physician onsite and consulted in the evaluation and care of this patient. The physician did have a face to face encounter with the patient. This chart was documented by the indicated scribe, (Rosa Pearl Scribe) and accurately reflects the services I performed and decisions made by me, Asha Levine MD, as attested by the provider's signature.
== END 2017-01-05 15:07 | disposition short-term general hospital (02) ==
LOC: SUPCPDRO → ED 12:58 → EDIPHOLD 22:41 → SUATTDRO 22:41 → 3S 23:41 → ICU 01-05 11:44
PROVIDERS: ATTEND Internal Medicine